=== PATIENT | female | born 1960 | race Caucasian/White ===

== ENCOUNTER 2017-07-05 08:53 | Emergency (ER) | payer MEDICAID ==
[~2017-07-05] VITALS: Wt 76.0 kg
[~2017-07-05 08:53] MED LIST: HYDR-3498 PO
[2017-07-05] MEDS ORDERED: IBUPROFEN 600 MG TAB PO ONE (10:00)
--- NOTE | 2017-07-05 10:25 | RADRPT ---
PROCEDURE: XR Wrist 3 Views. CLINICAL INDICATION: Left wrist pain and trauma. TECHNIQUE: AP, oblique and lateral views of the left wrist were performed. COMPARISON: No prior studies are available for comparison. FINDINGS: Impacted, mildly angulated and displaced fracture through the distal radial metaphysis is identified . The remaining osseous structures appear intact. No destructive bony lesions are identified. Inte rosseous spaces are grossly preserved. Soft tissue swelling is seen surrounding the wrist. IMPRESSION: Distal radius fracture. Soft tissue swelling surrounding the wrist.. If further characterization is needed CT or MRI could be helpful. If there is high clinical suspicion for traumatic injury, further evaluation with CT should be consi dered. RPTAT: AA .Morgan Huynh MD, Date Time Electronically viewed and signed by .Morgan Huynh MD, MD on 07/05/2017 10:24 .P/
[2017-07-05] MEDS ORDERED: IBUP-1542 PO (10:39)
[2017-07-05] MEDS ORDERED: HYDR-906 PO (11:12)
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
[2017-07-05 12:01] VITALS: BP 138/88; PULSE 74; RESP 19
== END 2017-07-05 12:02 | disposition home or self-care (01) ==
LOC: FTE 08:53
DX: S59.292A Other physeal fracture of lower end of radius, left arm, initial encounter for closed fracture (principal); V49.50XA Passenger injured in collision with unspecified motor vehicles in traffic accident, initial encounter
CPT/HCPCS: 29125; 73110; Z7502; Z7610